=== PATIENT | male | born 1945 | race Caucasian/White ===

== ENCOUNTER 2018-01-06 19:34 | Inpatient (IN) ==
[2018-01-07] MEDS: Ipratropium/Albuterol Neb 3 ML IH SCH ×8 (00:17→23:54)
[2018-01-07] MEDS ORDERED: OXYCODONE Oral CONC 10 MG/0.5 ML ORAL.SYG SL PRN (00:37)
[2018-01-07] MEDS: 0.9 % Sodium Chloride 1,000 ML IVC SCH ×2 (01:20→05:24)
[2018-01-07] MEDS ORDERED: *HR* FentaNYL (PF) 100 MCG/2 ML VIAL IVP ONE (05:11)
[2018-01-07] MEDS ORDERED: Albuterol 2.5 MG/3 ML NEBULIZER IH PRN ×2 (05:19→15:56)
[2018-01-07] MEDS ORDERED: Acetaminophen 325 MG TABLET PO PRN ×2 (05:19→15:56)
[2018-01-07] MEDS ORDERED: Naloxone 0.4 MG/ML INJ IVP PRN ×2 (05:19→15:56)
[2018-01-07] MEDS ORDERED: *HR* HYDROcodone/Acet 5/325 mg TABLET PO PRN ×2 (05:19→15:56)
[2018-01-07] MEDS ORDERED: 0.9 % Sodium Chloride 1,000 ML IV SCH (05:21)
[2018-01-07] MEDS ORDERED: 0.9 % Sodium Chloride 1,000 ML IVC SCH ×2 (05:30→15:56)
[2018-01-07] MEDS ORDERED: Ondansetron 4 MG/2 ML VIAL IVP PRN ×2 (05:31→15:56)
--- NOTE | 2018-01-07 05:38 | Internal Med History&Physical ---
Date of Encounter: 01/07/18 Time of Encounter: 05:05 Internal Medicine - H&P: HPI Chief complaint: flank pain; decerased urine output Admitted From: Hospital to Hospital Transfer Plans for Post Hospital Care: Home History of present illness: Mr. Espinal is a 72 year old male who presents in transfer from [facility] ER. He presented there with complaints of acute onset left-sided flank pain, nausea, vomiting, decreased urine output, and subtle dysuria. Workup there revealed patient to have an obstructive uropathy and findings compatible with pyelonephritis. Due to lack of urology coverage at [facility] this weekend, he was tr ansferred to [place] for ongoing care and management. Upon my assessment of the patient, patient is having significant pain in his flank and complaining of some nausea. He has no chest pain, but he's had some cough and wheezing. However, he states this is his baseline. 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 He has a chronic cough and wheezing for which he uses nebulizers on a daily basis. He denies any fevers, but he's had some chills and shakes and night sweats the last 2 nights. The flank pain is getting worse. His nausea is slightly improved. He also has noted significant decrease in urine output over the last 12 hours. He denies any hematuria, however. He has never had kidney stones before. I reviewed records from [facility] and note that the CT scan results suggest left- sided perinephric stranding and mild left-sided hydronephrosis/hydroureter with a 2 mm obstructing stone at the UVJ junction. They did not send images or CD- ROM images of the CT scan, however. Past Med Surg Social Fam HX - Past Medical History Attestation: Yes The following information was validated with the patient. Source: patient, other ([facility] records) Medical history: COPD Additional medical history: smoker,psorasis Psychiatric history: no psych history - Past Surgical History Surgical History: cataract, herniorrhaphy Additional surgical history: left finger amputated - Social History Smoking Status: Current every day smoker Packs per day: 1 Smokeless Tobacco Status: No Alcohol use: none Drug use: none Current living situation: Home, With Family Activity Level: Independent ambulation Recent Out of Country Travel Within the Last 8 Weeks: No - Family History Mother Living Status: Hx Family Genitourinary Disorders: No Father Living Status: Hx Family Genitourinary Disorders: No Internal Medicine - H&P: Meds Breo Ellipta 200-25 Mcg INH 100 mg IH DAILY 01/06/18 [History] Doxycycline Monohydrate BID 01/06/18 [History] Ipratropium/Albuterol Neb IH Q4-6H PRN 01/06/18 [History] Latanoprost 1 drop BOTH EYES HS 01/06/18 [History] Nebulizer 01/06/18 [History] Prednisone 5 mg PO DAILY 01/06/18 [History] 3 Allergy/AdvReac Type Severity Reaction Status Date / Time No Known Drug Intolerances Allergy none Verified 01/06/18 22:28 - Constitutional Constitutional: chills, night sweats, no fever(s) - EENT Eyes: no blurry vision, no change in vision Ears: no ear pain, no tinnitus Nose, mouth and throat: no nasal congestion, no sinus pressure, no sore throat - Cardiovascular Cardiovascular ROS IM: no chest pain, no palpitations, no paroxysmal nocturnal dyspnea, no syncope - Respiratory Respiratory: cough (chronic), dyspnea, wheezing, no hemoptysis, no chest congestion, no excessive phlegm production, no change in phlegm color - Gastrointestinal Gastrointestinal: nausea, no abdominal pain, no diarrhea, no hematemesis, no hematochezia, no melena, no vomiting - Genitourinary Genitourinary ROS male: dysuria, flank pain, urinary urgency, no hematuria - Musculoskeletal Musculoskeletal ROS IM: no atrophy, no muscle weakness - Integumentary Integumentary IM: no rash, no jaundice - Neurological Neurological ROS: no dizziness, no focal weakness, no frequent falls, no headache(s) - Psychiatric Psychiatric: no anxiety, no depression - Endocrine Endocrine IM: no polydipsia, no polyuria - Allergic/Immunologic Allergic/Immunologic: wheezing, no GI upset with certain foods - Constitutional Vitals: Temp Pulse Resp BP Pulse Ox 98.0 F 80 20 157/97 96 01/06/18 22:11 01/06/18 22:11 01/07/18 04:06 01/06/18 22:11 01/07/18 04:06 General appearance: Present: cooperative, A&O X 3, pleasant, answers questions appropriately Exam: moderate distress due to flank pain - Head Head exam: Present: atraumatic, normal inspection - Eye Eye exam: Present: EOMI, PERRL. Absent: scleral icterus Pupils: Present: normal accommodation - ENT ENT exam: Present: mucous membranes dry, normal exam, normal oropharynx - Neck Neck exam general surgery: Present: full ROM, supple. Absent: tenderness, nuchal rigidity, thyromegaly - Respiratory Respiratory exam: Present: prolonged expiratory phase, rhonchi, wheezes (rare, scattered). Absent: chest wall tenderness, rales, respiratory distress - Cardiovascular Cardiovascular exam: Present: distant heart sounds, RRR, +S1, +S2. Absent: diastolic murmur, systolic murmur - GI/Abdominal GI/Abdominal exam: Present: normal bowel sounds, soft, tenderness (left flank radiating to left suprapubic area). Absent: hepatomegaly, mass, splenomegaly - Extremities Exam Extremities exam: Present: full ROM, warm, radial pulses palpable and symmetrical. Absent: calf tenderness, joint swelling, pedal edema, tenderness - Back Exam Back exam: Present: CVA tenderness (L), normal inspection. Absent: CVA tenderness (R) - Neurological Exam Neurological exam: Present: alert, CN II-XII intact, oriented X3, no focal deficits, strengths equal and symetr throughout - Psychiatric Psychiatric exam: Present: normal affect, normal mood - Skin Skin exam: Present: dry, intact, warm. Absent: rash Internal Med - H&P Results - Labs Labs: I reviewed the labs from [facility] and they include the following: WBC 14.1 Hemoglobin 14.8 Hematocrit 45.0 Platelets 291 Sodium 141 Potassium 3.8 Chloride 106 Carbon dioxide 26 BUN 17 Glucose 126 Urinalysis positive for protein, trace blood, trace ketones, negative nitrite and leukocyte esterase, specific gravity 1.070 Lactic acid was 2.1 with follow-up lactic acid level 0.9 - EKG Data -: EKG Interpreted by Myself - EKG Data Prior EKG available for review: no EKG comments: 01/07/18 05:49 NSR; Poor R wave progression anteriorly suggesting old septal RI; no acute ST-T changes - Assessment and plan (1) Pyelonephritis Current Visit: Yes Status: Acute Assessment and plan: 1. I ordered blood and urine cultures. 2. Will treat with Rocephin 2 grams IV daily. 3. Urology consult for likely cystoscopy and ureteral stent. 4. Will place on IV pain meds and anti-emetics as needed for severe flank pain and associated nausea. (2) Obstructive uropathy Current Visit: Yes Status: Acute Assessment and plan: 1. 2 mm ureteral stone noted at the left UVJ junction. 2. Urology consult placed for likely cystoscopy. 3. IVF hydration. (3) COPD (chronic obstructive pulmonary disease) Current Visit: Yes Status: Chronic Assessment and plan: 1. Patient at baseline without acute process. 2. Continue home prednisone dose and chronic meds. 3. Will schedule Duonebs and PRN albuterol nebs. Qualifiers: COPD type: emphysema Emphysema type: panlobular Qualified Code(s): J43.1 - Panlobular emphysema (4) Steroid long-term use Current Visit: Yes Status: Chronic Assessment and plan: 1. Patient at risk for acute adrenal insufficiency/crisis with surgery/anesthe otto/sepsis. 2. I scheduled stress dose steroids (Solu-cortef) which can be weaned after acute illness and surgery. 3. Monitor on telemetry and hemodynamic measures closely. (5) Acute kidney injury Current Visit: Yes Status: Acute Assessment and plan: 1. Patient denies any history of CKD. No old labs/records available for comparison of renal function. We have to assume it is CESAR. 2. CESAR likely due to obstructive uropathy and dehydration. 3. Continue IVF, treat pyelonephritis, relieve obstruction (urologic intervention). 4. Monitor renal function closely. Consult nephrology if renal function does not improve and/worsens. (6) DVT prophylaxis Current Visit: Yes Status: Acute Assessment and plan: 1. Heparin SQ.
[2018-01-07] MEDS ORDERED: *HR* Heparin 5,000 UNIT/ML VIAL SQ SCH (06:00)
[2018-01-07] MEDS ORDERED: cefTRIAXone 2,000 MG in Water for inj. (sterile) 20 ML 20 ML IVP SCH (06:00)
[2018-01-07 06:19] LABS: Basophils # 0.1 K/mcL (0.0-0.2); Basophils % 0.7 %; Eosinophils # 0.3 K/mcL (0.0-0.6); Eosinophils % 2.2 %; Hematocrit 40.5 % (37.5-50.1); Immature Granulocytes % 0.3 % (0-4); Lymphocytes # 1.1 K/mcL (0.6-4.6); Lymphocytes % 8.8 %; Mean Corpuscular HGB Conc 32.1 g/dL (31.6-35.5); Mean Corpuscular Hemoglobin 28.4 pg (28.0-33.3); Mean Corpuscular Volume 88.6 fL (83.0-100.0); Mean Platelet Volume 9.4 fL (9.4-12.4); Monocytes # 1.4 K/mcL (0.0-1.3); Monocytes % 11.7 %; Neutrophils # 9.3 K/mcL (1.6-8.9); Platelet Count 251 K/mcL (140-400); Red Blood Count 4.57 M/mcL (4.19-5.50); Red Cell Distribution Width 15.8 % (11.5-14.5); Segmented Neutrophils % 76.3 %
[2018-01-07 06:26] LABS: INR 1.1; Prothrombin Time 11.9 Seconds (9.4-12.1)
[2018-01-07 06:29] LABS: Activated Partial Thrombo Time 29.9 Seconds (26.0-36.0)
[2018-01-07 06:41] LABS: Albumin 3.5 g/dL (3.5-5.7); Albumin/Globulin Ratio 1.5 (1.1-2.2); Bilirubin,Total 1.2 mg/dL (0.3-1.0); Calcium 8.8 mg/dL (8.6-10.3); Globulin 2.3 g/dL (2.4-3.5); Magnesium 1.9 mg/dL (1.6-2.6); Total Protein 5.8 g/dL (6.4-8.9)
[2018-01-07] MEDS ORDERED: *HR* FentaNYL (PF) 100 MCG/2 ML VIAL IVP PRN ×2 (08:00→15:56)
[2018-01-07] MEDS ORDERED: Hydrocortisone Sodium Succ 100 MG/2 ML VIAL IVP SCH (08:00)
--- NOTE | 2018-01-07 08:48 | Event Note ---
Date of Encounter: 01/07/18 Time of Encounter: 08:42 Patient with history of COPD patient presented to [facility] emergency room with left flank pain nausea and vomiting and dysuria CT of abdomen and pelvis showed obstructive uropathy with the kidney stone patient also has some chronic cough and wheezing and was transferred here with diagnosis of pyelonephritis also also has acute kidney injury creatinine of 2 no previous renal function here to compare patient is on IV hydration, Rocephin antibiotic and and breathing treatment on follow-up evaluation patient appears comfortable awaiting urology consult evaluation for possible cystoscopy and stent will continue on IV hydration is stable at this point problems 1 obstructive uropathy with due to kidney stone 2 pyelonephritis on Rocephin 3 acute kidney injury likely combination of hypovolemia/dehydration and kidney stone 4 COPD chronic no active wheezing continue on breathing treatment plan iv hydration rocephin cultures pending 'urology consult
--- NOTE | 2018-01-07 08:55 | Urology - Consult Note ---
Date of Encounter: 01/07/18 Time of Encounter: 08:53 - Assessment and Plan (1) Ureteral calculus, left Current Visit: Yes Status: Acute Assessment and plan: Obstructing with hydro, pain and questionable infection. Discussed options for management. Plan: Diversion via stent in OR today. My office will arrange outpatient f/u for stent removal. (2) Acute kidney injury Current Visit: Yes Status: Acute Assessment and plan: Secondary to obstructing stone. Expect resolution s/p diversion with stent. Plan: Ureteral stent placement in OR today (3) Pyelonephritis Current Visit: Yes Status: Acute Assessment and plan: Diagnosed based on elevated WBC. Cultures pending. UA without leuk est or nitrites. Plan: Urinary diversion with stent in OR today Urology CN:HPI Consult date: 01/07/18 Requesting physician: Baldomero Pierce History of present illness: Mr. Espinal is a 72 year old male who presents in transfer from [facility] ER. He presented there with complaints of acute onset left-sided flank pain, nausea, vomiting, decreased urine output, and subtle dysuria. Workup there revealed patient to have an obstructive uropathy and findings compatible with pyelonephritis. Due to lack of urology coverage at [facility] this weekend, he was transferred to [place] for ongoing care and management. Upon my assessment of the patient, patient is having significant pain in his flank and complaining of some nausea. He has no chest pain, but he's had some cough and wheezing. However, he states this is his baseline. 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 He has a chronic cough and wheezing for which he uses nebulizers on a daily basis. He denies any fevers, but he's had some chills and shakes and night sweats the last 2 nights. The flank pain is getting worse. His nausea is slightly improved. He also has noted significant decrease in urine output over the last 12 hours. He denies any hematuria, however. He has never had kidney stones before. I reviewed records from [facility] and note that the CT scan results suggest left- sided perinephric stranding and mild left-sided hydronephrosis/hydroureter with a 2 mm obstructing stone at the UVJ junction. They did not send images or CD- ROM images of the CT scan, however. Past Med Surg Social Fam HX - Past Medical History Medical history: COPD Additional medical history: smoker,psorasis Psychiatric history: no psych history - Past Surgical History Surgical History: cataract, herniorrhaphy Additional surgical history: left finger amputated - Social History Smoking Status: Current every day smoker Packs per day: 1 Smokeless Tobacco Status: No Alcohol use: none Drug use: none - Family History Father Living Status: Hx Family Genitourinary Disorders: No Mother Living Status: Hx Family Genitourinary Disorders: No Medications and Allergies Breo Ellipta 200-25 Mcg INH 100 mg IH DAILY 01/06/18 [History] Doxycycline Monohydrate BID 01/06/18 [History] Ipratropium/Albuterol Neb IH Q4-6H PRN 01/06/18 [History] Latanoprost 1 drop BOTH EYES HS 01/06/18 [History] Nebulizer 01/06/18 [History] Prednisone 5 mg PO DAILY 01/06/18 [History] Allergy/AdvReac Type Severity Reaction Status Date / Time No Known Drug Intolerances Allergy none Verified 01/06/18 22:28 Review of Systems - Gastrointestinal abdominal pain Exam Initial Vital Signs Temp Pulse Resp BP Pulse Ox 98.0 F 80 16 157/97 97 01/06/18 22:11 01/06/18 22:11 01/06/18 22:11 01/06/18 22:11 01/06/18 22:11 - General physical appearance Present: well developed, well nourished, no distress, moderate pain - Eyes Present: normal ocular movement - ENT Present: normal nares, normal mucosa - Neck Present: trachea midline - Respiratory Present: normal respiratory effort - Cardiovascular Cardiovascular exam IM: RRR - Integumentary Present: no rash, no growths - Neurologic Present: normal coordination - Musculoskeletal Present: normal gait Urology Results - Labs 01/07/18 06:03 01/07/18 06:03 Abnormal lab results WBC 12.2 K/mcL (4.3-11.1) H 01/07/18 06:03 RDW 15.8 % (11.5-14.5) H 01/07/18 06:03 Neutrophils # 9.3 K/mcL (1.6-8.9) H 01/07/18 06:03 Monocytes # 1.4 K/mcL (0.0-1.3) H 01/07/18 06:03 Chloride 112 mEq/L (98-107) H 01/07/18 06:03 Creatinine 2.06 mg/dL (0.70-1.30) H 01/07/18 06:03 Est GFR ( Amer) 39 (> 60) L 01/07/18 06:03 Est GFR (Non-Af Amer) 32 (> 60) L 01/07/18 06:03 Glucose 113 mg/dL (70-105) H 01/07/18 06:03 Total Bilirubin 1.2 mg/dL (0.3-1.0) H 01/07/18 06:03 Serum Total Protein 5.8 g/dL (6.4-8.9) L 01/07/18 06:03 Globulin 2.3 g/dL (2.4-3.5) L 01/07/18 06:03 Diabetes panel 01/07/18 Range/Units 06:03 Sodium 141 (136-145) mEq/L Potassium 4.0 (3.5-5.1) mEq/L Chloride 112 H (98-107) mEq/L Carbon Dioxide 23 (23-29) mEq/L BUN 18 (8-23) mg/dL Creatinine 2.06 H (0.70-1.30) mg/dL Glucose 113 H (70-105) mg/dL Calcium 8.8 (8.6-10.3) mg/dL AST 19 (13-39) Units/L ALT 15 (7-52) Units/L Alkaline Phosphatase 58 (34-104) Units/L Albumin 3.5 (3.5-5.7) g/dL Calcium panel 01/07/18 Range/Units 06:03 Calcium 8.8 (8.6-10.3) mg/dL Albumin 3.5 (3.5-5.7) g/dL Pituitary panel 01/07/18 Range/Units 06:03 Sodium 141 (136-145) mEq/L Potassium 4.0 (3.5-5.1) mEq/L Chloride 112 H (98-107) mEq/L Carbon Dioxide 23 (23-29) mEq/L BUN 18 (8-23) mg/dL Creatinine 2.06 H (0.70-1.30) mg/dL Glucose 113 H (70-105) mg/dL Calcium 8.8 (8.6-10.3) mg/dL Adrenal panel 01/07/18 Range/Units 06:03 Sodium 141 (136-145) mEq/L Potassium 4.0 (3.5-5.1) mEq/L Chloride 112 H (98-107) mEq/L Carbon Dioxide 23 (23-29) mEq/L BUN 18 (8-23) mg/dL Creatinine 2.06 H (0.70-1.30) mg/dL Glucose 113 H (70-105) mg/dL Calcium 8.8 (8.6-10.3) mg/dL Total Bilirubin 1.2 H (0.3-1.0) mg/dL AST 19 (13-39) Units/L ALT 15 (7-52) Units/L Alkaline Phosphatase 58 (34-104) Units/L Albumin 3.5 (3.5-5.7) g/dL All other labs normal. - Imaging CT scan - abdomen: report reviewed Consult Discharge Plan - Plan Referrals: NONE,PCP [Primary Care Provider] -
[2018-01-07] MEDS ORDERED: predniSONE 5 MG TABLET PO SCH (09:00)
--- NOTE | 2018-01-07 10:29 | Anesthesia Evaluation PreOp ---
Date of Encounter: 01/07/18 Time of Encounter: 10:24 - Past History Alcohol Use: none Drug use: none Medications and Allergies Breo Ellipta 200-25 Mcg INH 100 mg IH DAILY 01/06/18 [History] Doxycycline Monohydrate BID 01/06/18 [History] Ipratropium/Albuterol Neb IH Q4-6H PRN 01/06/18 [History] Latanoprost 1 drop BOTH EYES HS 01/06/18 [History] Nebulizer 01/06/18 [History] Prednisone 5 mg PO DAILY 01/06/18 [History] Allergy/AdvReac Type Severity Reaction Status Date / Time No Known Drug Intolerances Allergy none Verified 01/06/18 22:28 Anesthesia Results - Labs 01/07/18 06:03 01/07/18 06:03
[2018-01-07] MEDS ORDERED: *HR* Propofol 200 MG/20 ML VIAL IVP ONE (13:31)
[2018-01-07] MEDS ORDERED: Dexamethasone 4 MG/ML VIAL ONE ×2 (13:31→14:46)
[2018-01-07] MEDS ORDERED: *HR* FentaNYL (PF) 100 MCG/2 ML VIAL ONE (13:31)
[2018-01-07] MEDS ORDERED: Lidocaine -MPF 2% 2 ML VIAL ONE (13:31)
[2018-01-07] MEDS ORDERED: Ondansetron 4 MG/2 ML VIAL ONE (13:31)
[2018-01-07] MEDS ORDERED: Isovue-300 30 ML VIAL ONE (13:37)
[2018-01-07] MEDS ORDERED: *HR* PHENYLEPHRINE 1,000 MCG/10 ML SYRINGE IVP ONE (14:47)
--- NOTE | 2018-01-07 15:15 | Operative Note ---
Date of procedure: 01/07/18 Pre-op diagnosis: left ureteral calculus, pyelonephritis Post-op diagnosis: same Procedure: Cystoscopy, left retrograde ureteral pyelography, left double-J stent insertion, fluoroscopy with intraoperative interpretation of all radiographic images in real time by surgeon to facilitate procedure Implants: Left double-J ureteral stent Complications: None Anesthesia: GETA Surgeon: Robert Hodges Was there an behavioral health assistant present: No Estimated blood loss (cc): 0 Specimen: none Condition: stable Disposition: floor Procedure in Detail: The patient was brought to the operating theater identified by name and date of , administered a general anesthetic, positioned in dorsal lithotomy, prepped and draped in the normal sterile fashion. At this point cystoscope was inserted to the urethral meatus and advanced with the bladder under direct visualization. There were no abnormalities of the urethra or bladder mucosa. An open-ended catheter was placed the tip of the left ureteral orifice. With gentle injection of contrast a left retrograde ureteropyelogram was performed. Revealed minimal dilation of the ureter and collecting system. No filling defects were appreciated. A Glidewire was advanced into the left pelvis. Over the Glidewire and under direct fluoroscopic vision a 6 x 28 double-J ureteral stent was advanced. Once it was felt to be in good position Glidewire and all instruments removed from the bladder. Satisfactory stent position was confirmed fluoroscopically. This ended the operative procedure. The patient was awakened in the operating theater expanded and transferred to recovery in hemodynamically stable condition
[2018-01-07] MEDS ORDERED: *HR* Promethazine 25 MG/ML VIAL IVP PRN (15:17)
[2018-01-07] MEDS ORDERED: *HR* OxyCODONE/APAP 5/325 TABLET PO PRN (15:17)
--- NOTE | 2018-01-07 15:49 | Anesthesia Evaluation Post Op ---
Date of Encounter: 01/07/18 Time of Encounter: 15:48 - Vital Signs Vital Signs: Vital Signs/O2 Sat, Most Current Temp Pulse Resp BP Pulse Ox 98.7 F 99 20 117/85 95 01/07/18 15:36 01/07/18 15:36 01/07/18 15:36 01/07/18 15:36 01/07/18 15:36 - Lungs Lungs: Clear Ascult./Percussion - Airway Airway: Non-obstructed - Cardiovascular Regular Rate, Baseline Rhythm - Mental Status Mental Status: Alert & Oriented, Answers Appropriately - Pain Pain Scale: 1 Pain Scale used: Numeric (1 - 10) - Nausea Vomiting Nausea Vomiting: Not Present - Hydration Hydration: Ice chips - Discharge PostOp Status: Transfer Patient to floor
[2018-01-07] MEDS: Hydrocortisone Sodium Succ 100 MG/2 ML VIAL IVP SCH (17:02)
[2018-01-07] MEDS: *HR* Heparin 5,000 UNIT/ML VIAL SQ SCH (17:02)
[2018-01-07 18:51] LABS: Bilirubin,Urine Negative (Negative); Blood,Urine Large (Negative); Clarity,Urine Clear (Clear); Color,Urine Dark Yellow (Yellow); Glucose,Urine (UA) >=1000 mg/dL (Normal); Ketones,Urine Trace mg/dL (Negative); Leukocyte Esterase,Urine Negative (Negative); Nitrite,Urine Negative (Negative); PH,Urine 5.5 pH Units (5.0-8.0); Protein,Urine 100 mg/dL (Neg-Trace); Specific Gravity,Urine > 1.030 (1.010-1.025); Urobilinogen,Urine Normal (Normal)
[2018-01-07] MEDS: Latanoprost 2.5 ML BOTTLE BOTH EYES SCH (20:10)
[2018-01-07] MEDS ORDERED: Latanoprost 2.5 ML BOTTLE BOTH EYES SCH (21:00)
[2018-01-08] MEDS: Hydrocortisone Sodium Succ 100 MG/2 ML VIAL IVP SCH ×4 (00:24→23:54)
[2018-01-08] MEDS: Ipratropium/Albuterol Neb 3 ML IH SCH ×6 (04:06→23:31)
[2018-01-08] MEDS: cefTRIAXone 2,000 MG in Water for inj. (sterile) 20 ML 20 ML IVP SCH (06:06)
[2018-01-08] MEDS: *HR* Heparin 5,000 UNIT/ML VIAL SQ SCH ×2 (06:07→17:08)
[2018-01-08] MEDS ORDERED: predniSONE 5 MG TABLET PO SCH (09:00)
[2018-01-08] MEDS ORDERED: 0.9 % Sodium Chloride 1,000 ML IVC SCH (10:30)
[2018-01-08] MEDS ORDERED: 0.9 % Sodium Chloride 1,000 ML ONE (10:47)
[2018-01-08] MEDS: Promethazine/Codeine Oral Sryup 5 ML UDC PO PRN (20:54)
[2018-01-08] MEDS: Latanoprost 2.5 ML BOTTLE BOTH EYES SCH (20:59)
--- NOTE | 2018-01-08 21:44 | Internal Med Progress Note ---
Hospitalist Progress Note - Encounter Date of Encounter: 01/08/18 Time of Encounter: 19:00 - Subjective Interval History: SUBJECTIVE: He complains of mild left flank pain. He makes good amounts of urine. Denies chest pain. Denies difficulty breathing. He does have mild cough but not wheezing. The patient continues to use for liter per minute nasal cannula oxygen. OBJECTIVE: Skin: Free of rash and discoloration. ENMT: Oral/pharyngeal mucosa is normal in appearance. Eyes: Sclera is white. There is no discharge from eyes. Respiratory: Normal breath sounds; no crackles or wheezes. CV: Heart is regular; no gallop or murmur. GI: Abdomen is soft and not tender. There is no palpable mass or visceromegaly. Neuro: There is no focal deficits. ASSESSMENT AND PLAN: The patient was admitted with left flank pain secondary to left ureteral calculus/left hydronephrosis. Associated with acute pyelonephritis. The first 2 problems are gone. We will continue IV Rocephin. We will repeat his creatinine tomorrow. I hope is acute kidney injury is resolving. COPD exacerbation/acute on chronic hypoxic respiratory failure. We will continue IV Rocephin with IV Solu-Cortef and nebulizer treatments with DuoNeb. - Exam Vitals: Temp Pulse Resp BP Pulse Ox 98.0 F 97 16 155/96 91 01/08/18 20:20 01/08/18 20:20 01/08/18 20:20 01/08/18 20:20 01/08/18 20:20 Exam: xx - Assessment and Plan (1) Pyelonephritis Current Visit: Yes Status: Acute (2) Acute kidney injury Current Visit: Yes Status: Acute (3) COPD exacerbation Current Visit: Yes Status: Acute (4) Acute and chronic respiratory failure with hypoxia Current Visit: Yes Status: Acute (5) Ureteral calculus, left Current Visit: Yes Status: Resolved (6) Hydronephrosis, left Current Visit: Yes Status: Resolved - Time Spent with Patient Total time spent is greater than 50% in coordination of care (as documented) at patient's floor/unit and/or counseling patient: 25 - 35 minutes Plan of Care Discussed with: patient Internal Medicine: Result - Labs CBC & Chem 7: 01/07/18 06:03 01/07/18 06:03 - ABG Interpretation ABG results: PT/INR, D-dimer PT 11.9 Seconds (9.4-12.1) 01/07/18 06:03 - Impressions Impressions Chest X-Ray 01/08/18 07:22 IMPRESSION: No acute cardiopulmonary disease. D/ / 01/08/2018 09:14:50 Marvin Flores MD / Stacie Rivas Interpreting Provider: Marvin Flores MD Consult Discharge Plan - Plan Referrals: Robert Hodges [Partnered Physician] -
[2018-01-09] MEDS: Ipratropium/Albuterol Neb 3 ML IH SCH ×4 (03:52→15:46)
[2018-01-09] MEDS ORDERED: CefTRIAXone 2,000 MG VIAL ONE (05:32)
[2018-01-09] MEDS: cefTRIAXone 2,000 MG in Water for inj. (sterile) 20 ML 20 ML IVP SCH (05:40)
[2018-01-09] MEDS: *HR* Heparin 5,000 UNIT/ML VIAL SQ SCH (05:41)
[2018-01-09 06:08] LABS: Basophils % 0.1 %; Hematocrit 37.1 % (37.5-50.1); Hemoglobin 11.7 g/dL (12.9-16.9); Immature Granulocytes % 0.4 % (0-4); Lymphocytes # 0.6 K/mcL (0.6-4.6); Lymphocytes % 4.6 %; Mean Corpuscular HGB Conc 31.5 g/dL (31.6-35.5); Mean Corpuscular Hemoglobin 28.7 pg (28.0-33.3); Mean Corpuscular Volume 91.2 fL (83.0-100.0); Mean Platelet Volume 9.6 fL (9.4-12.4); Monocytes # 0.7 K/mcL (0.0-1.3); Monocytes % 5.2 %; Neutrophils # 11.4 K/mcL (1.6-8.9); Platelet Count 230 K/mcL (140-400); Red Blood Count 4.07 M/mcL (4.19-5.50); Red Cell Distribution Width 15.9 % (11.5-14.5); Segmented Neutrophils % 89.7 %
[2018-01-09 06:39] LABS: BUN/Creatinine Ratio 22 (6-26); Blood Urea Nitrogen 29 mg/dL (8-23); Calcium 8.9 mg/dL (8.6-10.3); Carbon Dioxide 22 mEq/L (23-29); Chloride 112 mEq/L (98-107); Glucose 137 mg/dL (70-105); Osmolality,Calculated 302 (280-300); Potassium 3.9 mEq/L (3.5-5.1); Sodium 142 mEq/L (136-145); eGFR For Non-African Americans 54 (> 60)
[2018-01-09 08:13] VITALS: BP 169/108
[2018-01-09] MEDS: Hydrocortisone Sodium Succ 100 MG/2 ML VIAL IVP SCH (08:27)
[2018-01-09] MEDS: Promethazine/Codeine Oral Sryup 5 ML UDC PO PRN (09:17)
--- NOTE | 2018-01-09 11:07 | Discharge Summary ---
Orders not resulted at time of discharge: Pending orders 01/07/18 05:19 Culture,Urine [RM] Stat 01/07/18 06:03 Culture,Blood [BC] Stat Date of Encounter: 01/09/18 Time of Encounter: 11:05 - Discharge Diagnosis (1) COPD exacerbation Priority: Primary Status: Acute (2) Acute and chronic respiratory failure with hypoxia Priority: Primary Status: Resolved (3) Pyelonephritis Priority: Primary Status: Acute (4) Acute kidney injury Priority: Primary Status: Acute (5) Ureteral calculus, left Priority: Primary Status: Resolved (6) Hydronephrosis, left Priority: Primary Status: Resolved Hospital course: HOSPITAL COURSE: The patient is a 72-year-old male. We admitted him with quickly progressing symptoms of left-sided flank pain, nausea, vomiting and decreased urinary output. Imaging studies suggested left ureteral stone/left hydronephrosis and developing left pyelonephritis. We presented him to urology. Subsequently, he got a stent in the area of left ureteral obstruction. The patient was put on IV Rocephin. His hematuria subsided. We also treated him for dyspnea, coughing and wheezing secondary to COPD exacerbation. He was on IV Rocephin, IV Solu-Cortef and nebulizer treatments with DuoNeb. He developed acute on chronic hypoxic respiratory failure. Eventually, his dyspnea subsided. He does have cough but not wheezing. He is on 2 L/min nasal cannula oxygen, again. This is his baseline. CONDITION AT DISCHARGE: He feels good. Denies chest pain and difficulty breathing. On 2 L/min nasal cannula oxygen. Denies abdominal pain, nausea and vomiting. He has no problems with urination all. He ambulates on his own. Skin: Free of rash and discoloration. Respiratory: Normal breath sounds with no crackles and wheezes bilaterally. CV: Heart is regular with no gallop or murmur. GI: Abdomen is flat and soft with no palpable mass or visceromegaly. Neuro exam: There is no focal deficits. Normal speech, swallowing and gait. SEE DISCHARGE ORDERS/MEDICATIONS.. Discharge discussed with: patient - Time Spent with Patient Total time spent providing and/or coordinating discharge services: Greater than 30 minutes (40 minutes..) - Discharge Medications Prescriptions: Cefuroxime PO [Ceftin] 250 mg PO Q12HR #10 tablet predniSONE [PredniSONE] 20 mg PO DAILY #5 tablet Home Medications: Fluticasone/Vilanterol [Breo Ellipta 200-25 Mcg INH] 1 puff IH DAILY 01/08/18 [History] Ipratropium/Albuterol Sulfate [Iprat-Albut 0.5-3(2.5) mg/3 ml] 3 mg IH QID 01/08/18 [History] Latanoprost [Xalatan] 1 drop BOTH EYES QAM 01/08/18 [History] predniSONE [PredniSONE] 5 mg PO DAILY 01/08/18 [History] Cefuroxime PO [Ceftin] 250 mg PO Q12HR #10 tablet 01/09/18 [Rx] predniSONE [PredniSONE] 20 mg PO DAILY #5 tablet 01/09/18 [Rx] Allergies/Adverse Reactions: Allergy/AdvReac Type Severity Reaction Status Date / Time No Known Drug Intolerances Allergy none Verified 01/08/18 13:07 Date of admission: 01/07/18 12:51 Primary care physician: PCP NONE Consults: 01/06/18 22:52 Consult to Muck Operator [CONS] Routine Reason for SW Consult: pt has interim home health and deisi for 0xygen 01/07/18 05:23 Consult to Physician [CONS] Routine Consulting Provider: Robert Hodges Reason for Consult: obstructive uropathy; pyelonephritis Call Completed: No Discharging clinician: Jj Whitney Anticipated date of discharge: 01/09/18 - Constitutional Vitals: Temp Pulse Resp BP Pulse Ox 97.8 F 117 17 169/108 95 01/09/18 06:31 01/09/18 08:12 01/09/18 06:31 01/09/18 08:12 01/09/18 08:12 General appearance: Present: cooperative, A&O X 3, pleasant, answers questions appropriately Exam: xx - Patient Status Disposition: Home Health Service Condition: Fair Functional capacity at discharge: independent ambulation Overall status at discharge: patient is progressing back to baseline - Discharge Instructions Follow Up With: Robert Hodges [Partnered Physician] - (Office will call patient at home with date and time of appointment. Thank you) Additional Instructions: OXYGEN AT 3 L/MIN NC; KEEP SAO2 AT 90-95%.. FOLLOW-UP WITH UROLOGY -- IN ABOUT 1 WEEK.. - Diet and Activity Activity: increase activity as tolerated Diet: low fat, low cholesterol - VTE Deep Vein Thrombosis/Pulmonary Embolism Present on Admission: No
--- NOTE | 2018-01-09 12:14 | Physician Discharge Referral ---
Home Health/Hosp Referral Info Transfer to: Home Health Attending Provider: Melchor Whitney MD Provider in Charge Post Discharge: PCP - Diagnosis (1) COPD exacerbation Priority: Primary Status: Acute (2) Acute and chronic respiratory failure with hypoxia Priority: Primary Status: Resolved (3) Pyelonephritis Priority: Primary Status: Acute (4) Acute kidney injury Priority: Primary Status: Acute (5) Ureteral calculus, left Priority: Primary Status: Resolved (6) Hydronephrosis, left Priority: Primary Status: Resolved - Respiratory Orders Oxygen / L per min (3 l/min) Smoking Cessation: Smoking cessation has been advised. For more information, call the [place] [employer] Quit Line at 3-799-EMNQ-NOW. - Diet/Nutrition Diet/Nutrition Orders: Cardiac - Activity Activity Orders: Ambulate - Services Needed Following services are medically necessary services: Nursing, Home Health Aide - Transfer Medications Prescriptions: Cefuroxime PO [Ceftin] 250 mg PO Q12HR #10 tablet predniSONE [PredniSONE] 20 mg PO DAILY #5 tablet Home Medications: Fluticasone/Vilanterol [Breo Ellipta 200-25 Mcg INH] 1 puff IH DAILY 01/08/18 [History] Ipratropium/Albuterol Sulfate [Iprat-Albut 0.5-3(2.5) mg/3 ml] 3 mg IH QID 01/08/18 [History] Latanoprost [Xalatan] 1 drop BOTH EYES QAM 01/08/18 [History] predniSONE [PredniSONE] 5 mg PO DAILY 01/08/18 [History] Cefuroxime PO [Ceftin] 250 mg PO Q12HR #10 tablet 01/09/18 [Rx] predniSONE [PredniSONE] 20 mg PO DAILY #5 tablet 01/09/18 [Rx] Allergies/Adverse Reactions: Allergy/AdvReac Type Severity Reaction Status Date / Time No Known Drug Intolerances Allergy none Verified 01/08/18 13:07 Certification: Further, I certify that my clinical findings support that this patient is homebound (i.e. absences from home require considerable and taxing effort and are for medical reasons or faith services or infrequently or short duration when for other reasons) because: Homebound Reason: Patient requires assistance of a person or device to safely leave home Attestation: My signature below is to certify that this patient is under my care and that I, or nurse practitioner, or a physician's sales and marketing assistant working with me, has a [id number] encounter with this patient.
--- NOTE | 2018-01-09 15:27 | Urology Progress Note ---
Date of Encounter: 01/09/18 Time of Encounter: 15:25 - Assessment and Plan (1) Ureteral calculus, left Current Visit: Yes Status: Resolved Assessment and plan: Stented on Sunday. Ready for discharge. Plan: My office will arrange outpatient follow-up for definitive management of stone. (2) Acute kidney injury Current Visit: Yes Status: Acute Assessment and plan: Secondary to obstructing stone. Stent on Sunday. My office will arrange for outpatient definitive address of stone in the coming weeks. (3) Pyelonephritis Current Visit: Yes Status: Acute Assessment and plan: Stinted for obstruction. Antibody management per primary. Progress Note Subjective: feels better, tolerating a regular diet Objective Initial Vital Signs Temp Pulse Resp BP Pulse Ox 98.0 F 80 16 157/97 97 01/06/18 22:11 01/06/18 22:11 01/06/18 22:11 01/06/18 22:11 01/06/18 22:11 - General physical appearance Present: no distress - Respiratory Present: normal respiratory effort - Abdomen Present: soft, tender - Integumentary Present: no growths, no abnormal pigmentation - Musculoskeletal Present: normal posture - Psychiatric Present: oriented to time, oriented to person, oriented to place - Labs 01/09/18 05:27 01/09/18 05:27 Diabetes panel 01/09/18 Range/Units 05:27 Sodium 142 (136-145) mEq/L Potassium 3.9 (3.5-5.1) mEq/L Chloride 112 H (98-107) mEq/L Carbon Dioxide 22 L (23-29) mEq/L BUN 29 H (8-23) mg/dL Creatinine 1.31 H (0.70-1.30) mg/dL Glucose 137 H (70-105) mg/dL Calcium 8.9 (8.6-10.3) mg/dL Calcium panel 01/09/18 Range/Units 05:27 Calcium 8.9 (8.6-10.3) mg/dL Pituitary panel 01/09/18 Range/Units 05:27 Sodium 142 (136-145) mEq/L Potassium 3.9 (3.5-5.1) mEq/L Chloride 112 H (98-107) mEq/L Carbon Dioxide 22 L (23-29) mEq/L BUN 29 H (8-23) mg/dL Creatinine 1.31 H (0.70-1.30) mg/dL Glucose 137 H (70-105) mg/dL Calcium 8.9 (8.6-10.3) mg/dL Adrenal panel 01/09/18 Range/Units 05:27 Sodium 142 (136-145) mEq/L Potassium 3.9 (3.5-5.1) mEq/L Chloride 112 H (98-107) mEq/L Carbon Dioxide 22 L (23-29) mEq/L BUN 29 H (8-23) mg/dL Creatinine 1.31 H (0.70-1.30) mg/dL Glucose 137 H (70-105) mg/dL Calcium 8.9 (8.6-10.3) mg/dL - VTE Deep Vein Thrombosis/Pulmonary Embolism Present on Admission: No Consult Discharge Plan - Plan Additional Instructions: OXYGEN AT 3 L/MIN NC; KEEP SAO2 AT 90-95%.. FOLLOW-UP WITH UROLOGY -- IN ABOUT 1 WEEK.. Referrals: Robert Hodges [Partnered Physician] - (Office will call patient at home with date and time of appointment. Thank you) Prescriptions: Cefuroxime PO [Ceftin] 250 mg PO Q12HR #10 tablet predniSONE [PredniSONE] 20 mg PO DAILY #5 tablet
--- NOTE | 2018-01-11 15:50 | Electrocardiograph Report ---
[place] [id number] Test Date: 2018-01-07 Pat Name: Austin Espinal Department: 115 Room: 3A16 Gender: M Wildlife Conservationist: JOSE : 1945 Requested By: Baldomero Pierce Order Number: [id number] Reading MD: Garland Gastelum Measurements Intervals [place] Rate: 89 P: 54 OK: 175 QRS: 29 QRSD: 72 T: 42 QT: 326 QTc: 373 Interpretive Statements SINUS RHYTHM LOW QRS VOLTAGE IN EXTREMITY LEADS Artifact lead V6 Electronically Signed On 01-11-2018 15:49:05 EDT by Garland Gastelum
== END 2018-01-09 17:26 | disposition home health service (06) | DRG 659 ==
LOC: 3ANU → SUATTDRO 01-07 12:51
PROVIDERS: ADMIT Family Medicine; ATTEND Internal Medicine